=== PATIENT | male | born 1930 | race African-American/Black ===

== ENCOUNTER 2016-12-22 00:04 | Emergency (ER) | payer MEDICARE, BC ==
--- NOTE | 2016-12-22 03:40 | ER Document Report ---
ED GI/ - General Chief Complaint: Hematuria Stated Complaint: BLOOD IN URINE Time seen by provider: 03:30 Notes: Patient is an 86-year-old male that comes emergency department for chief complaint of blood in his urine. He noticed it starting yesterday. He denies any pain in the abdomen, groin, genital region, or flank. He denies any fever, dysuria, nausea, vomiting. Patient states he is taking a "pill" for prostate cancer, sees Dr. Rowe with [facility] urology, states he has a follow-up in 6 weeks. Denies any history of kidney stones, urinary tract surgery, or history of the same. TRAVEL OUTSIDE OF THE [place] IN LAST 30 DAYS: No - Related Data Allergies/Adverse Reactions: Penicillins Allergy (Verified 10/14/13 04:19) Past Medical History - General Information source: Patient, Relative - Social History Smoking Status: Former Smoker Frequency of alcohol use: None Drug Abuse: None Lives with: Family Family History: Reviewed & Not Pertinent - Past Medical History Cardiac Medical History: Reports: Hx Hypertension Renal/ Medical History: Reports: Hx Benign Prostatic Hyperplasia. Denies: Hx Peritoneal Dialysis Musculoskeltal Medical History: Reports Hx Arthritis Past Surgical History: Reports: Hx Rectal Surgery - hemorhoidectomy, Hx Tonsillectomy - Immunizations Hx Diphtheria, Pertussis, Tetanus Vaccination: Yes Hx Pneumococcal Vaccination: 06/13/14 Review of Systems - Review of Systems Constitutional: No symptoms reported EENT: No symptoms reported Cardiovascular: No symptoms reported Respiratory: No symptoms reported Gastrointestinal: No symptoms reported Genitourinary: See HPI Male Genitourinary: No symptoms reported Musculoskeletal: No symptoms reported Skin: No symptoms reported Hematologic/Lymphatic: No symptoms reported Neurological/Psychological: No symptoms reported Physical Exam - Vital signs Vitals: Temp Pulse Resp BP Pulse Ox 98.5 F 73 19 189/97 H 97 12/22/16 00:22 12/22/16 00:22 12/22/16 00:22 12/22/16 00:22 12/22/16 00:22 Interpretation: Normal - General General appearance: Appears well, Alert In distress: None - HEENT Head: Normocephalic, Atraumatic Eyes: Normal Pupils: PERRL - Respiratory Respiratory status: No respiratory distress Chest status: Nontender Breath sounds: Normal Chest palpation: Normal - Cardiovascular Rhythm: Regular Heart sounds: Normal auscultation Murmur: No - Abdominal Inspection: Normal Distension: No distension Bowel sounds: Normal Tenderness: Nontender Organomegaly: No organomegaly - Genitourinary Inspection: Normal Cremasteric reflex: Normal Scrotum: Normal - Back Back: Normal, Nontender - Extremities General upper extremity: Normal inspection, Nontender, Normal color, Normal ROM , Normal temperature General lower extremity: Normal inspection, Nontender, Normal color, Normal ROM , Normal temperature, Normal weight bearing. No: Nish's sign - Neurological Neuro grossly intact: Yes Cognition: Normal Orientation: AAOx4 Reji Coma Scale Eye Opening: Spontaneous Reji Coma Scale Verbal: Oriented Argyle Coma Scale Motor: Obeys Commands Argyle Coma Scale Total: 15 Speech: Normal Motor strength normal: LUE, RUE, LLE, RLE Sensory: Normal - Psychological Associated symptoms: Normal affect, Normal mood - Skin Skin Temperature: Warm Skin Moisture: Dry Skin Color: Normal Course - Re-evaluation Re-evalutation: Review of patient's records shows that he has absolutely had gross hematuria before, was evaluated for this last November including a CAT scan which showed no stones, diverticulosis, and enlarged prostate. Soft abdomen, unremarkable genital exam, no flank tenderness, no tenderness reported whatsoever. Urine shows hematuria. Patient is already being managed by urology, discussed findings with patient, discussed that this does not appear to be an infection. Patient most likely on chemotherapy, most likely being treated for urinary tract/prostate cancer, denies any current symptoms other than the mild intermittent hematuria, discussed contacting his urologist now, they state that they will go home and contact him in the morning. Discussed return precautions including fever, pain, etc. Patient and significant other state understanding and agreement. - Vital Signs Vital signs: Temp Pulse Resp BP Pulse Ox 98.5 F 74 16 167/96 H 95 12/22/16 00:22 12/22/16 04:43 12/22/16 04:43 12/22/16 04:43 12/22/16 04:43 - Laboratory Laboratory results interpreted by me: 12/22/16 03:50 Urine Blood LARGE H Discharge - Discharge Clinical Impression: Hematuria Condition: Stable Disposition: HOME, SELF-CARE Additional Instructions: Your urine shows blood but does not indicate an infectious cause. Please call your urologist today and inform them that you have begun to have hematuria while on the your current medication regimen. Return immediately if you develop pain, fever, or severe bleeding. Forms: Elevated Blood Pressure Referrals: JEFFERY AMARO MD [Primary Care Provider] - Follow up as needed
[2016-12-22 04:19] LABS: APPEARANCE,URINE CLEAR; BILIRUBIN,URINE NEGATIVE (NEGATIVE); GLUCOSE, URINE NEGATIVE (NEGATIVE); KETONES,URINE NEGATIVE (NEGATIVE); LEUKOCYTE ESTERASE,URINE NEGATIVE (NEGATIVE); NITRITE,URINE NEGATIVE (NEGATIVE); PROTEIN,URINE NEGATIVE (NEGATIVE); URINE SPECIFIC GRAVITY 1.014; UROBILINOGEN,URINE NEGATIVE mg/dL (<2.0)
[2016-12-22 04:44] VITALS: BP 167/96
== END 2016-12-22 04:43 | disposition home or self-care (01) ==
LOC: ER 00:04
DX: R31.0 Gross hematuria (principal); Z79.899 Other long term (current) drug therapy; Z88.0 Allergy status to penicillin; Z87.891 Personal history of nicotine dependence
CPT/HCPCS: 81001; 87086; 99283

== ENCOUNTER → 2017-05-24 | Outpatient (CLI) | payer MEDICARE, BC ==
--- NOTE | 2017-05-24 11:27 | RADIOLOGY REPORT (SQ) ---
EXAM DESCRIPTION: U/S RETROPERITON (RENAL/AORTA) COMPLETED DATE/TIME: 05/24/2017 9:35 am REASON FOR STUDY: HEMATURIA R31.0 GROSS HEMATURIA COMPARISON: 12/12/2015 TECHNIQUE: Dynamic and static grayscale images acquired of the kidneys and bladder and recorded on P ACS. Additional selected color Doppler and spectral images recorded. LIMITATIONS: None. FINDINGS: RIGHT KIDNEY: Normal size. Normal echogenicity. No solid or suspicious masses. No hydronep hrosis. No calcifications. LEFT KIDNEY: Normal size. Normal echogenicity. No solid or suspicious masses. No hydronephrosis. No calcifications. There is a stable 4.0 x 4.7 x 4.2 cm cyst. BLADDER: No masses. OTHER FINDINGS: The prostate is enlarged measured 5.7 x 5.4 x 5.3 cm. It indents the base of the ariella dder. IMPRESSION: Enlarged prostate. Stable left renal cyst. No other significant findings. TECHNICAL DOCUMENTATION: JOB ID: [id number] [employer]- All Rights Reserved
== END ==
LOC: RAD 08:39
PROVIDERS: ATTEND Urology
DX: R31.0 Gross hematuria (principal); N40.0 Benign prostatic hyperplasia without lower urinary tract symptoms; N28.1 Cyst of kidney, acquired
CPT/HCPCS: 76770

== ENCOUNTER → 2018-03-31 | Outpatient (CLI) | payer MEDICARE, BC ==
--- NOTE | 2018-03-31 11:02 | RADIOLOGY REPORT (SQ) ---
EXAM DESCRIPTION: CT HEAD WITHOUT COMPLETED DATE/TIME: 03/31/2018 10:18 am REASON FOR STUDY: HEADACHES R51 HEADACHE COMPARISON: CT brain 11/22/2014, 11/19/2014 TECHNIQUE: Axial images acquired through the brain without intravenous contrast. Images reviewed wi th bone, brain and subdural windows. Additional sagittal and coronal reconstructions were generated. Images stored on PACS. All CT scanners at this facility use dose modulation, iterative reconstruction, and/or weight based d osing when appropriate to reduce radiation dose to as low as reasonably achievable (ALARA). [facility]: Dose Right [facility]: CareDose [facility]: Dose Right [facility]: Teradose 4D [facility]: [employer] RADIATION DOSE: CT Rad equipment meets quality standard of care and radiation dose reduction techniq ues were employed. CTDIvol: 48.6 mGy. DLP: 929 mGy-cm. mGy. LIMITATIONS: None. FINDINGS: VENTRICLES: Normal size and contour for age, unchanged from 2015. CEREBRUM: No CT evidence of acute ischemic change, acute intracranial hemorrhage, mass effect, or mid line shift. 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 No hemorrhage. No alteration of density. No evidence for acute infarction. EXTRAAXIAL SPACES: No fluid collections. No masses. No recurrent right subdural hemorrhage. No acu te left subdural hemorrhage. ORBITS AND GLOBE: No intra- or extraconal masses. Normal contour of globe, with bilateral cataract s urgery. CALVARIUM: No fracture. PARANASAL SINUSES: No fluid or mucosal thickening. SOFT TISSUES: No mass or hematoma. OTHER: No other significant finding. IMPRESSION: No acute findings EVIDENCE OF ACUTE STROKE: NO. COMMENT: Quality ID # [id number]: Final reports with documentation of one or more dose reduction techniques (e.g., Automated exposure control, adjustment of the mA and/or kV according to patient size, use of iterative reconstruction technique) TECHNICAL DOCUMENTATION: JOB ID: [id number] [employer]- All Rights Reserved Reading location - IP/workstation name: [email or web address]
== END ==
LOC: RAD 10:01
PROVIDERS: ATTEND Family Medicine
DX: R51 Headache (principal)
CPT/HCPCS: 70450

== ENCOUNTER → 2019-07-05 | Outpatient (CLI) | payer MEDICARE, BC ==
--- NOTE | 2019-07-05 18:44 | RADIOLOGY REPORT (SQ) ---
EXAM DESCRIPTION: U/S EXTREMITY NONVASCULAR LTD COMPLETED DATE/TIME: 07/05/2019 5:20 pm REASON FOR STUDY: (S46.211A)STRAIN OF MUSC/FASC/TEND PRT BICEPS, RIGHT ARM, INIT S46.211A STRAIN OF MUSC/FASC/TEND PRT BICEPS, RIGHT ARM, INI COMPARISON: None. TECHNIQUE: Dynamic and static grayscale images acquired of the localized site of clinical concern an d recorded on PACS. Additional selected color Doppler and spectral images recorded. SITE OF CONCERN: Right biceps LIMITATIONS: None. FINDINGS: Sonographic imaging of the right biceps shows no tear or mass or fluid collection. The le ft biceps was image for comparison the and was normal. IMPRESSION: No significant abnormality is seen. TECHNICAL DOCUMENTATION: JOB ID: [id number] [employer]- All Rights Reserved Reading location - IP/workstation name: [email or web address]
== END ==
LOC: RAD 16:00
PROVIDERS: ATTEND Family Medicine
DX: S46.211A Strain of muscle, fascia and tendon of other parts of biceps, right arm, initial encounter (principal); X58.XXXA Exposure to other specified factors, initial encounter; Y93.9 Activity, unspecified; Y92.9 Unspecified place or not applicable
CPT/HCPCS: 76882